=== PATIENT | female | born 1990 | race Caucasian/White ===

== ENCOUNTER → 2019-04-20 | Outpatient (CLI) | payer OTHER ==
[~2019-04-20] MED LIST: CYCL10 PO; EXPECTA PRENAT1 EACH PO; HYDACE5 PO; IBUP600 PO; IBUP800 PO; NAPR500 PO; Norco 5-325 Ta1 EACH PO; OXYACE5T PO; RXHYDACE PO; SULTRIDS PO
== END ==
LOC: LAB SHORT 11:03 → LAB 11:03
DX: J02.9 Acute pharyngitis, unspecified (principal)
CPT/HCPCS: 87077; 87081; 87185

== ENCOUNTER 2021-12-03 17:38 | Emergency (ER) | payer BC, OTHER ==
[~2021-12-03] VITALS: Ht 162.6 cm; Wt 73.9 kg
[2021-12-03] MEDS ORDERED: IBU800 MG PO (19:24)
[2021-12-03] MEDS ORDERED: HYDR1TAB94 PO (19:24)
== END 2021-12-03 19:45 | disposition home or self-care (01) ==
LOC: ER 17:38
DX: S83.92XA Sprain of unspecified site of left knee, initial encounter (principal); W19.XXXA Unspecified fall, initial encounter; Z79.899 Other long term (current) drug therapy; Z87.891 Personal history of nicotine dependence; Y93.01 Activity, walking, marching and hiking; Y92.9 Unspecified place or not applicable
CPT/HCPCS: 29505; 73562-LT; 99283-25; A9270

== ENCOUNTER → 2022-03-19 | Outpatient (CLI) | payer BC, OTHER ==
[~2022-03-19] MED LIST changes: +HYDR1TAB94 PO; +IBU800 MG PO
[2022-03-19 10:58] LABS: BASOPHILS ABSOLUTE AUTO 0.01 K/mm3 (0.00-0.23); BASOPHILS PERCENT AUTO 0 % (0-2); EOSINOPHILS ABSOLUTE AUTO 0.03 K/mm3 (0.00-0.68); EOSINOPHILS PERCENT AUTO 1 % (0-6); Hematocrit 42.6 % (33.0-51.0); Hemoglobin 15.2 g/dL (11.5-16.0); IMMATURE GRAN ABSOLUTE AUTO 0.01 K/mm3 (0.00-0.10); IMMATURE GRAN PERCENT AUTO 0 % (0-1); LYMPHOCYTES ABSOLUTE AUTO 2.06 K/mm3 (0.84-5.20); LYMPHOCYTES PERCENT AUTO 46 % (21-46); MONOCYTES ABSOLUTE AUTO 0.22 K/mm3 (0.16-1.47); MONOCYTES PERCENT AUTO 5 % (4-13); Mean Corpuscular HGB 33.7 pg (26.0-34.0); Mean Corpuscular HGB Conc 35.7 g/dL (31.5-36.5); Mean Corpuscular Volume 95 fL (80-100); Mean Platelet Volume 9.4 fL (9.1-12.4); NEUTROPHILS ABSOLUTE AUTO 2.17 K/mm3 (1.96-9.15); NEUTROPHILS PERCENT AUTO 48 % (41-73); Platelet Count 218 K/mm3 (150-400); RDW Coefficient Variation 14.4 % (11.7-14.2); RDW Standard Deviation 49.6 fL (35.1-46.3); Red Blood Cell Count 4.51 M/mm3 (3.80-5.20)
[2022-03-19 11:19] LABS: Albumin, Blood 4.6 g/dL (3.4-5.0); Albumin/Globulin Ratio 1.3 (0.8-1.8); Bilirubin, Total 0.5 mg/dL (0.1-1.0); Bun/Creatinine Ratio 8.2 (12.0-20.0); Creatinine, Blood 0.73 mg/dL (0.40-1.00); Globulin, Blood 3.6 g/dL (2.2-4.0); Potassium, Blood 3.6 mmol/L (3.5-5.5); Thyroid Stimulating Hormone 0.926 uIU/mL (0.360-4.800); Total Protein, Blood 8.2 g/dL (6.4-8.2)
== END | disposition home or self-care (01) ==
LOC: LAB 10:54 → LAB SHORT 10:54
PROVIDERS: Physician Assistant Medical
DX: R06.00 Dyspnea, unspecified (principal); R53.83 Other fatigue
CPT/HCPCS: 80053; 84443; 84484; 85025; 85379; 85651

== ENCOUNTER 2022-03-26 00:01 | Emergency (ER) | payer BC, OTHER ==
[~2022-03-26] VITALS: Ht 170.2 cm; Wt 65.8 kg
[2022-03-26 01:15] LABS: Influenza A, PCR NEGATIVE (NEGATIVE); Influenza B, PCR NEGATIVE (NEGATIVE); Resp Syncytial Virus, PCR NEGATIVE (NEGATIVE); SARS-Cov-2 (COVID-19) PCR, MMC NEGATIVE (NEGATIVE)
== END 2022-03-26 03:24 | disposition left against medical advice (07) ==
LOC: ER 00:01
PROVIDERS: Student in an Organized Health Care Education/Training Program
DX: R06.02 Shortness of breath (principal); Z53.21 Procedure and treatment not carried out due to patient leaving prior to being seen by health care provider
CPT/HCPCS: 0241U

== ENCOUNTER 2022-08-12 19:23 | Emergency (ER) | payer BC, OTHER ==
[~2022-08-12] VITALS: Ht 162.6 cm; Wt 74.8 kg
[2022-08-12 19:26] VITALS: BP 159/107
== END 2022-08-12 20:40 | disposition home or self-care (01) ==
LOC: ER 19:23
DX: M79.641 Pain in right hand (principal); Z87.891 Personal history of nicotine dependence
CPT/HCPCS: 73130; 99283-25

== ENCOUNTER → 2022-11-24 | Outpatient (CLI) | payer BC, OTHER | END | disposition home or self-care (01) | LOC: LAB 18:06 → LAB SHORT 18:06 | DX: L01.00 Impetigo, unspecified (principal) | CPT/HCPCS: 87070; 87077; 87186; 87205 ==

== ENCOUNTER → 2023-08-30 | Outpatient (CLI) | payer OTHER | END | disposition home or self-care (01) | LOC: LAB SHORT 10:50 → LAB 10:50 | DX: R25.2 Cramp and spasm (principal) ==

== ENCOUNTER 2024-04-18 00:12 | Emergency (ER) | payer OTHER ==
[~2024-04-18] VITALS: Ht 162.6 cm; Wt 63.5 kg
[~2024-04-18 00:12] MED LIST changes: +ALBU90OI INH; +APHEN325 M1 PO; +CEFP200 PO; +OXYC5 PO; +VISBIOME 112.51 EACH PO
[2024-04-18 00:15] VITALS: BP 125/87
[2024-04-18] MEDS ORDERED: ESCI10 (00:37)
== END 2024-04-18 02:31 | disposition home or self-care (01) ==
LOC: ER 00:12
DX: S52.021A Displaced fracture of olecranon process without intraarticular extension of right ulna, initial encounter for closed fracture (principal); W19.XXXA Unspecified fall, initial encounter
CPT/HCPCS: 29105; 73080; 73110; 99283-25

== ENCOUNTER 2024-04-22 19:42 | Emergency (ER) | payer OTHER ==
[~2024-04-22] VITALS: Ht 162.6 cm; Wt 59.0 kg
[~2024-04-22 19:42] MED LIST changes: +ESCI10
[2024-04-22 20:05] LABS: BASOPHILS ABSOLUTE AUTO 0.03 K/mm3 (0.00-0.23); BASOPHILS PERCENT AUTO 1 % (0-2); EOSINOPHILS ABSOLUTE AUTO 0.06 K/mm3 (0.00-0.68); EOSINOPHILS PERCENT AUTO 1 % (0-6); Hematocrit 43.1 % (33.0-51.0); Hemoglobin 14.6 g/dL (11.5-16.0); IMMATURE GRAN ABSOLUTE AUTO 0.01 K/mm3 (0.00-0.10); IMMATURE GRAN PERCENT AUTO 0 % (0-1); LYMPHOCYTES ABSOLUTE AUTO 2.04 K/mm3 (0.84-5.20); LYMPHOCYTES PERCENT AUTO 46 % (21-46); MONOCYTES ABSOLUTE AUTO 0.16 K/mm3 (0.16-1.47); MONOCYTES PERCENT AUTO 4 % (4-13); Mean Corpuscular HGB Conc 33.9 g/dL (31.5-36.5); Mean Corpuscular Volume 98 fL (80-100); Mean Platelet Volume 8.9 fL (9.1-12.4); NEUTROPHILS ABSOLUTE AUTO 2.16 K/mm3 (1.96-9.15); NEUTROPHILS PERCENT AUTO 49 % (41-73); Platelet Count 315 K/mm3 (150-400); RDW Coefficient Variation 14.7 % (11.7-14.2); RDW Standard Deviation 53.2 fL (35.1-46.3); Red Blood Cell Count 4.42 M/mm3 (3.80-5.20); White Blood Cell Count 4.46 K/mm3 (4.00-11.30)
[2024-04-22 20:43] LABS: Albumin, Blood 4.1 g/dL (3.4-5.0); Albumin/Globulin Ratio 1.2 (0.8-1.8); Bilirubin, Total 0.5 mg/dL (0.1-1.0); Bun/Creatinine Ratio 10.4 (12.0-20.0); Calcium, Blood 8.4 mg/dL (8.5-10.1); Creatinine, Blood 0.58 mg/dL (0.40-1.00); Globulin, Blood 3.4 g/dL (2.2-4.0); Potassium, Blood 3.4 mmol/L (3.5-5.5); Total Protein, Blood 7.5 g/dL (6.4-8.2)
[2024-04-22 22:00] VITALS: BP 114/76
== END 2024-04-22 23:47 | disposition home or self-care (01) ==
LOC: ER 19:42
PROVIDERS: Emergency Medicine
DX: S06.9X9A Unspecified intracranial injury with loss of consciousness of unspecified duration, initial encounter (principal); J45.909 Unspecified asthma, uncomplicated; I10 Essential (primary) hypertension; W01.0XXA Fall on same level from slipping, tripping and stumbling without subsequent striking against object, initial encounter; Z87.81 Personal history of (healed) traumatic fracture; Z87.891 Personal history of nicotine dependence; Z79.899 Other long term (current) drug therapy
CPT/HCPCS: 70450; 72125; 80053; 80320; 84703; 85025; 93005; 93010; 99285-25

== ENCOUNTER 2024-04-24 12:10 | Emergency (ER) | payer OTHER ==
[~2024-04-24] VITALS: Ht 162.6 cm; Wt 68.0 kg
[2024-04-24 12:50] LABS: BASOPHILS ABSOLUTE AUTO 0.04 K/mm3 (0.00-0.23); BASOPHILS PERCENT AUTO 1 % (0-2); EOSINOPHILS PERCENT AUTO 0 % (0-6); Hematocrit 41.3 % (33.0-51.0); Hemoglobin 14.2 g/dL (11.5-16.0); IMMATURE GRAN ABSOLUTE AUTO 0.01 K/mm3 (0.00-0.10); IMMATURE GRAN PERCENT AUTO 0 % (0-1); LYMPHOCYTES ABSOLUTE AUTO 0.72 K/mm3 (0.84-5.20); LYMPHOCYTES PERCENT AUTO 13 % (21-46); MONOCYTES ABSOLUTE AUTO 0.33 K/mm3 (0.16-1.47); MONOCYTES PERCENT AUTO 6 % (4-13); Mean Corpuscular HGB 33.5 pg (26.0-34.0); Mean Corpuscular HGB Conc 34.4 g/dL (31.5-36.5); Mean Corpuscular Volume 97 fL (80-100); Mean Platelet Volume 9.1 fL (9.1-12.4); NEUTROPHILS PERCENT AUTO 81 % (41-73); Platelet Count 284 K/mm3 (150-400); RDW Coefficient Variation 15.2 % (11.7-14.2); RDW Standard Deviation 54.7 fL (35.1-46.3); Red Blood Cell Count 4.24 M/mm3 (3.80-5.20)
[2024-04-24 13:12] LABS: Albumin, Blood 4.2 g/dL (3.4-5.0); Albumin/Globulin Ratio 1.2 (0.8-1.8); Bilirubin, Total 1.7 mg/dL (0.1-1.0); Bun/Creatinine Ratio 8.8 (12.0-20.0); Calcium, Blood 9.1 mg/dL (8.5-10.1); Creatinine, Blood 0.68 mg/dL (0.40-1.00); Globulin, Blood 3.4 g/dL (2.2-4.0); Potassium, Blood 3.1 mmol/L (3.5-5.5); Total Protein, Blood 7.6 g/dL (6.4-8.2)
[2024-04-24 16:07] LABS: Ethanol (Alcohol), Blood, Med <3 mg/dL
[2024-04-24 16:55] LABS: Source, Urine Clean Catch
[2024-04-24 17:01] LABS: Appearance, Urine Hazy (Clear); Blood, Urine 1+ (Neg); Color, Urine Amber (P-Yellow); Glucose Qualitative, Urine Neg (Neg); Ketones, Urine 3+ (Neg); Leukocyte Esterase, Urine 3+ (Neg); Nitrite, Urine Pos (Neg); Protein, Urine 3+ (Neg); Specific Gravity, Urine 1.015 (1.003-1.022); Urobilinogen, Urine 2+ (Normal); pH, Urine 6.5 (5.0-8.0)
[2024-04-24 17:04] LABS: Bilirubin, Urine 1+ (Neg)
[2024-04-24 17:18] LABS: Bacteria Many /hpf; Mucus Light (0-Heavy); Squamous Epithelial Cells Mod /hpf (Few)
[2024-04-24 17:30] LABS: CORONAVIRUS COVID-19 AG Negative (NEGATIVE); INFLUENZA A AG Negative (NEGATIVE); INFLUENZA B AG Negative (NEGATIVE)
[2024-04-24 18:40] VITALS: BP 121/61
== END 2024-04-24 18:40 | disposition home or self-care (01) ==
LOC: ER 12:10
PROVIDERS: Student in an Organized Health Care Education/Training Program
DX: R11.2 Nausea with vomiting, unspecified (principal); R94.31 Abnormal electrocardiogram [ECG] [EKG]; Z87.891 Personal history of nicotine dependence; J45.909 Unspecified asthma, uncomplicated; I10 Essential (primary) hypertension; R73.03 Prediabetes
CPT/HCPCS: 80053; 80320; 81001; 81025; 83690; 85025; 87086; 87428-QW; 93005; 93010; 99284-25

== ENCOUNTER → 2024-08-14 | Outpatient (CLI) | payer OTHER ==
[2024-08-28 10:51] LABS: HPV HIGH RISK BY TMA Not Detected; HPV SOURCE Cervical
== END | disposition home or self-care (01) ==
LOC: LAB 10:36 → LAB SHORT 10:36
PROVIDERS: Physician Assistant
DX: Z01.419 Encounter for gynecological examination (general) (routine) without abnormal findings (principal)
CPT/HCPCS: 87624; G0123